=== PATIENT | male | born 1995 ===

== ENCOUNTER 2018-06-01 12:22 | Emergency (ER) | payer OTHER ==
--- NOTE | 2018-06-01 14:01 | ED PDOC ---
Arrival/HPI - General Chief Complaint: Eye Problem Time Seen by Provider: 06/01/18 12:34 Historian: Patient - History of Present Illness Narrative History of Present Illness (Text): 06/01/18 13:38 23yo male with no pmhx who present with complaint of left eye irritation s/p gasoline splashed into his eye this morning. Notes it happened 30minutes [employer]. States he irrigated the eye with water for 10minutes. Notes only discomfort on his lower eye area. Denies tearing, photophobia, visual changes, any other complaint. Past Medical History - Provider Review Nursing Documentation Reviewed: Yes - Psychiatric Hx Substance Use: No - Anesthesia Hx Anesthesia: No Hx Anesthesia Reactions: No Hx Malignant Hyperthermia: No Family/Social History - Physician Review Nursing Documentation Reviewed: Yes Family/Social History: Unknown Family HX Smoking Status: Never Smoked Hx Alcohol Use: Yes Frequency of alcohol use: Socially Hx Substance Use: No Allergies/Home Meds Allergies/Adverse Reactions: Allergies aspirin Allergy (Verified 06/01/18 12:40) ANAPHYLAXIS Review of Systems - Physician Review All systems were reviewed & negative as marked: Yes - Review of Systems Constitutional: Normal Eyes: Other (Left eye irritation) ENT: Normal Respiratory: Normal Cardiovascular: Normal Gastrointestinal: Normal Genitourinary Male: Normal Musculoskeletal: Normal Skin: Normal Neurological: Normal Endocrine: Normal Hemo/Lymphatic: Normal Psychiatric: Normal Physical Exam Vital Signs Reviewed: Yes Temperature: Afebrile Blood Pressure: Normal Pulse: Regular Respiratory Rate: Normal Appearance: Positive for: Well-Appearing, Non-Toxic, Comfortable Pain Distress: None Mental Status: Positive for: Alert and Oriented X 3 - Systems Exam Head: Present: Atraumatic, Normocephalic Pupils: Present: PERRL Extroacular Muscles: Present: EOMI Conjunctiva: Present: Normal, Other (No florescin uptake) Mouth: Present: Moist Mucous Membranes Neck: Present: Normal Range of Motion Respiratory/Chest: Present: Clear to Auscultation, Good Air Exchange. No: Respiratory Distress, Accessory Muscle Use Cardiovascular: Present: Regular Rate and Rhythm, Normal S1, S2. No: Murmurs Abdomen: No: Tenderness, Distention, Peritoneal Signs Back: Present: Normal Inspection Upper Extremity: Present: Normal Inspection. No: Cyanosis, Edema Lower Extremity: Present: Normal Inspection. No: Edema Neurological: Present: GCS=15, CN II-XII Intact, Speech Normal Skin: Present: Warm, Dry, Normal Color. No: Rashes Psychiatric: Present: Alert, Oriented x 3, Normal Insight, Normal Concentration Medical Decision Making ED Course and Treatment: 06/01/18 18:40 PT in ED for stated history. He denied photophobia, tearing, visual changes in ED. His eye was irrigated in ED with sterile water for 10minutes. Visual acuity was done and recorded Pt have no florescin uptake on exam He was DC home and referred to yarn spooler Disposition/Present on Arrival - Present on Arrival Any Indicators Present on Arrival: No History of DVT/PE: No History of Uncontrolled Diabetes: No Urinary Catheter: No History of Decub. Ulcer: No History Surgical Site Infection Following: None - Disposition Have Diagnosis and Disposition been Completed?: Yes Diagnosis: Eye problem Disposition: HOME/ ROUTINE Disposition Time: 14:00 Patient Plan: Discharge Condition: STABLE Discharge Instructions (ExitCare): Foreign Body in Eye Additional Instructions: Follow up with Transportation Planning Engineer Return to ED for any new or worsening symptoms Referrals: FAMILY PROVIDER,NO [Primary Care Provider] - Follow up with primary Christopher Yan MD [Staff Provider] - Follow up with primary Forms: [facility] ([place]anese)
[2018-06-01 14:23] VITALS: BP 124/76; PULSE 78; RESP 18; O2SAT 98
== END 2018-06-01 14:23 | disposition home or self-care (01) ==
LOC: ED 12:22
DX: H57.9 Unspecified disorder of eye and adnexa (principal)